=== PATIENT | female | born 1985 | race African-American/Black ===

== ENCOUNTER → 2020-03-07 08:01 | Outpatient (CLI) | payer OTHER, SELFPAY ==
--- NOTE | ~2020-03-07 | XR_ITS ---
XR lumbar spine 2-3V 03/07/2020 08:29 Indication: Low back pain. Spondylolisthesis. Procedure: 4 views lumbar spine Comparison: No prior studies for comparison. Findings: Vertebral body heights are maintained. Normal lumbar lordosis. Mild disc narrowing at L5-S1 . No evidence for spondylolysis or spondylolisthesis. Pedicles intact. Sacral foramen are symmetric. There is an IUD in the pelvis. There is a punctate calcification in the left abdomen at the L3 level, possibly renal stone. Impression: 1: Mild lumbar spondylosis. 2: Possible left nephrolithiasis. Reviewed, dictated and finalized at location A. [employer] Impression: 1: Mild lumbar spondylosis. 2: Possible left nephrolithiasis.
== END ==
PROVIDERS: Visit Provider Internal Medicine
DX: M47.816 Spondylosis without myelopathy or radiculopathy, lumbar region (principal); Z97.5 Presence of (intrauterine) contraceptive device
CPT/HCPCS: 72100